=== PATIENT | female | born 1940 | race Caucasian/White ===

== ENCOUNTER 2016-07-02 15:03 | Inpatient (IN) | payer MEDICARE ==
[~2016-07-02] VITALS: Ht 160 cm; Wt 97.8 kg
[~2016-07-02 15:03] MED LIST: AMIO200T42 PO; CALC500T PO; CEFD300C2 PO; CHOL2000 PO; FAMO20TA7 PO; FERR325T20 PO; FLUO20CA8 PO; FURO40TA6 PO; GLIP-33 PO; INSU100C5 SQ-INSULIN; INSU100V13 SC; INSU100V5 SQ-INSULIN; MERO1VIA3 IV; NYST1000 PO; NYST15PO9 TP; PIOG15TA9 PO; POTA10TA11 PO; SENN1TAB7 PO; VANC125C2 PO
[2016-07-02 16:28] LABS: ASPARTATE AMINO TRANSFERASE 14 U/L (15-37); BLOOD UREA NITROGEN 15 mg/dL (7-18)
[2016-07-02 16:58] LABS: DIFF TOTAL CELLS COUNTED 100 CELL DIFF
[2016-07-02 17:04] LABS: ANISOCYTOSIS 2+; MICROCYTOSIS 1+; VERIFY COUNTS? YES
[2016-07-02 17:05] LABS: HYPOCHROMIA 1+; POLYCHROMASIA 1+; SPHEROCYTES 1+
[2016-07-02 17:19] VITALS: BP 93/34
[2016-07-02] MEDS ORDERED: HYDROcodone/APAP 5/325 TABLET PO PRN (18:00)
[2016-07-02] MEDS ORDERED: CALCIUM CARBONATE 500 MG TABLET PO PRN (18:00)
[2016-07-02] MEDS ORDERED: MORPHINE SULFATE 4 MG/ML, 1ML IVPush PRN (18:00)
[2016-07-02] MEDS ORDERED: ENOXAPARIN 40 MG/0.4 ML SQ SCH (18:00)
[2016-07-02 20:00] VITALS: BP 106/70
[2016-07-02] MEDS: INSULIN REGULAR 100 UNITS/ML, 3ML VIAL SQ-INSULIN SCH (21:00)
[2016-07-02] MEDS: INSULIN DETEMIR 100 UNITS/ML, PEN SQ-INSULIN SCH (21:00)
[2016-07-02] MEDS: VANCOMYCIN 50 MG/ML ORAL SUSP PO SCH (22:15)
[2016-07-02] MEDS: FAMOTIDINE 20 MG TABLET PO SCH (22:16)
[2016-07-02] MEDS: AMIODARONE 200 MG TABLET PO SCH (22:16)
[2016-07-02 22:20] VITALS: BP 93/50
[2016-07-02 22:41] VITALS: BP 96/52
[2016-07-02 23:01] VITALS: BP 92/50
[2016-07-03 00:44] VITALS: BP 94/60
[2016-07-03 01:04] VITALS: BP 94/58
[2016-07-03 02:00] VITALS: BP 138/77
[2016-07-03] MEDS: VANCOMYCIN 50 MG/ML ORAL SUSP PO SCH ×4 (04:46→22:00)
[2016-07-03 05:13] LABS: BLOOD UREA NITROGEN 14 mg/dL (7-18)
[2016-07-03 05:46] LABS: DIFF TOTAL CELLS COUNTED 100 CELL DIFF
[2016-07-03 05:51] LABS: SPHEROCYTES 1+; VERIFY COUNTS? YES
[2016-07-03 05:52] LABS: ANISOCYTOSIS 1+; HYPOCHROMIA 1+; MICROCYTOSIS 1+; POLYCHROMASIA 1+
[2016-07-03] MEDS: INSULIN REGULAR 100 UNITS/ML, 3ML VIAL SQ-INSULIN SCH ×4 (07:00→21:00)
[2016-07-03 09:12] VITALS: BP 112/68
[2016-07-03] MEDS: CHOLECALCIFEROL 1,000 UNIT TABLET PO SCH (09:40)
[2016-07-03] MEDS: AMIODARONE 200 MG TABLET PO SCH ×2 (09:40→21:06)
[2016-07-03] MEDS: FUROSEMIDE 20 MG TABLET PO SCH (09:40)
[2016-07-03] MEDS: FERROUS SULFATE 325 MG TABLET PO SCH (09:40)
[2016-07-03] MEDS: FAMOTIDINE 20 MG TABLET PO SCH ×2 (09:40→21:06)
[2016-07-03] MEDS: FLUOXETINE 20 MG CAPSULE PO SCH (09:40)
[2016-07-03] MEDS: SENNA/DOCUSATE TABLET PO SCH (09:40)
[2016-07-03 13:30] VITALS: BP 96/63
[2016-07-03] MEDS: INSULIN DETEMIR 100 UNITS/ML, PEN SQ-INSULIN SCH (21:06)
[2016-07-03 21:18] VITALS: BP 103/68
[2016-07-03] MEDS: DIPHENHYDRAMINE 25 MG CAPSULE PO PRN (23:50)
[2016-07-04 01:26] VITALS: BP 92/56
[2016-07-04] MEDS: VANCOMYCIN 50 MG/ML ORAL SUSP PO SCH ×4 (04:00→22:52)
[2016-07-04 05:05] LABS: BLOOD UREA NITROGEN 13 mg/dL (7-18)
[2016-07-04 05:34] LABS: DIFF TOTAL CELLS COUNTED 100 CELL DIFF
[2016-07-04 05:53] LABS: VERIFY COUNTS? YES
[2016-07-04 05:54] LABS: ANISOCYTOSIS 1+; HYPOCHROMIA 1+; MICROCYTOSIS 1+; POLYCHROMASIA 1+; SPHEROCYTES 1+
[2016-07-04] MEDS: INSULIN REGULAR 100 UNITS/ML, 3ML VIAL SQ-INSULIN SCH ×4 (07:00→21:00)
[2016-07-04 07:22] VITALS: BP 104/63
[2016-07-04] MEDS: FLUOXETINE 20 MG CAPSULE PO SCH (07:37)
[2016-07-04] MEDS: FAMOTIDINE 20 MG TABLET PO SCH ×2 (07:37→21:02)
[2016-07-04] MEDS: CHOLECALCIFEROL 1,000 UNIT TABLET PO SCH (07:37)
[2016-07-04] MEDS: SENNA/DOCUSATE TABLET PO SCH (07:38)
[2016-07-04] MEDS: AMIODARONE 200 MG TABLET PO SCH ×2 (07:38→21:02)
[2016-07-04] MEDS: FERROUS SULFATE 325 MG TABLET PO SCH (07:38)
[2016-07-04] MEDS: FUROSEMIDE 20 MG TABLET PO SCH (07:38)
[2016-07-04 14:53] VITALS: BP 106/63
[2016-07-04] MEDS: POTASSIUM CHLORIDE 20 MEQ TAB.ER.PRT PO SCH (16:34)
[2016-07-04 20:00] VITALS: BP 108/70
[2016-07-04] MEDS: INSULIN DETEMIR 100 UNITS/ML, PEN SQ-INSULIN SCH (21:00)
[2016-07-04] MEDS: DIPHENHYDRAMINE 25 MG CAPSULE PO PRN (22:52)
[2016-07-05 03:40] VITALS: BP 109/67
[2016-07-05] MEDS: VANCOMYCIN 50 MG/ML ORAL SUSP PO SCH ×4 (04:25→21:29)
[2016-07-05 04:46] LABS: BLOOD UREA NITROGEN 11 mg/dL (7-18)
[2016-07-05 06:03] LABS: DIFF TOTAL CELLS COUNTED 100 CELL DIFF
[2016-07-05 06:25] LABS: ANISOCYTOSIS 1+; HYPOCHROMIA 1+; MICROCYTOSIS 1+; POLYCHROMASIA 1+
[2016-07-05 06:26] LABS: SPHEROCYTES 1+
[2016-07-05 06:27] LABS: VERIFY COUNTS? YES
[2016-07-05] MEDS: INSULIN REGULAR 100 UNITS/ML, 3ML VIAL SQ-INSULIN SCH ×4 (07:00→21:00)
[2016-07-05 07:25] VITALS: BP 96/58
[2016-07-05] MEDS: ONDANSETRON 2MG/ML, 2ML IVPush PRN (07:45)
[2016-07-05] MEDS ORDERED: MAGNESIUM SULFATE PMX 4GM/100M 100 ML IV ONE (09:00)
[2016-07-05] MEDS: CHOLECALCIFEROL 1,000 UNIT TABLET PO SCH (09:45)
[2016-07-05] MEDS: FLUOXETINE 20 MG CAPSULE PO SCH (09:45)
[2016-07-05] MEDS: FUROSEMIDE 20 MG TABLET PO SCH (09:45)
[2016-07-05] MEDS: FERROUS SULFATE 325 MG TABLET PO SCH (09:45)
[2016-07-05] MEDS: POTASSIUM CHLORIDE 20 MEQ TAB.ER.PRT PO SCH ×2 (09:45→16:26)
[2016-07-05] MEDS: AMIODARONE 200 MG TABLET PO SCH ×2 (09:46→21:29)
[2016-07-05] MEDS: FAMOTIDINE 20 MG TABLET PO SCH ×2 (09:56→21:29)
[2016-07-05 13:20] VITALS: BP 99/64
[2016-07-05 19:10] VITALS: BP 95/57
[2016-07-05] MEDS: INSULIN DETEMIR 100 UNITS/ML, PEN SQ-INSULIN SCH (21:00)
[2016-07-05] MEDS: DIPHENHYDRAMINE 25 MG CAPSULE PO PRN (22:48)
[2016-07-06 01:45] VITALS: BP 91/61
[2016-07-06] MEDS: VANCOMYCIN 50 MG/ML ORAL SUSP PO SCH ×2 (04:26→09:27)
[2016-07-06 05:15] LABS: BLOOD UREA NITROGEN 13 mg/dL (7-18)
[2016-07-06] MEDS: INSULIN REGULAR 100 UNITS/ML, 3ML VIAL SQ-INSULIN SCH ×2 (07:00→11:53)
[2016-07-06 07:20] VITALS: BP 107/62
[2016-07-06] MEDS: FERROUS SULFATE 325 MG TABLET PO SCH (09:26)
[2016-07-06] MEDS: FLUOXETINE 20 MG CAPSULE PO SCH (09:26)
[2016-07-06] MEDS: FAMOTIDINE 20 MG TABLET PO SCH (09:26)
[2016-07-06] MEDS: CHOLECALCIFEROL 1,000 UNIT TABLET PO SCH (09:26)
[2016-07-06] MEDS: AMIODARONE 200 MG TABLET PO SCH (09:27)
[2016-07-06] MEDS: POTASSIUM CHLORIDE 20 MEQ TAB.ER.PRT PO SCH (09:27)
[2016-07-06] MEDS: FUROSEMIDE 20 MG TABLET PO SCH (09:32)
[2016-07-06] MEDS: ONDANSETRON 2MG/ML, 2ML IVPush PRN (10:29)
[2016-07-06] MEDS ORDERED: HYDR-3240 PO (11:25)
[2016-07-06 12:50] VITALS: BP 145/84
[2016-07-06 13:53] VITALS: BP 96/62
== END 2016-07-06 14:39 | disposition home or self-care (01) | DRG 808 ==
LOC: ED 15:56 → EDIP 17:37 → 3NW 19:07
PROVIDERS: ADMIT Hospitalist; ATTEND Hospitalist
PROC: 30233N1 Transfusion of Nonautologous Red Blood Cells into Peripheral Vein, Percutaneous Approach (ICD-10-PCS; principal; 2016-07-02)
PROC: 30233N1 Transfusion of Nonautologous Red Blood Cells into Peripheral Vein, Percutaneous Approach (ICD-10-PCS; 2016-07-03)
DX: D61.818 Other pancytopenia (principal); J96.20 Acute and chronic respiratory failure, unspecified whether with hypoxia or hypercapnia; E44.0 Moderate protein-calorie malnutrition; A04.7 Enterocolitis due to Clostridium difficile; I50.42 Chronic combined systolic (congestive) and diastolic (congestive) heart failure; J44.9 Chronic obstructive pulmonary disease, unspecified; Z86.19 Personal history of other infectious and parasitic diseases; Z66 Do not resuscitate; E11.9 Type 2 diabetes mellitus without complications; I48.2 Chronic atrial fibrillation; F32.9 Major depressive disorder, single episode, unspecified; Z87.891 Personal history of nicotine dependence; Z87.440 Personal history of urinary (tract) infections; Z87.01 Personal history of pneumonia (recurrent); Z68.38 Body mass index [BMI] 38.0-38.9, adult; Z88.5 Allergy status to narcotic agent; Z91.048 Other nonmedicinal substance allergy status; Z79.4 Long term (current) use of insulin; Z79.899 Other long term (current) drug therapy
CPT/HCPCS: 36415; 80048; 80053; 82306; 82962; 83036; 83735; 85025; 86850; 86900; 86923; 87040; 99285; J2405; J3370; J1815; J3475; P9040; Q0163